=== PATIENT | female | born 1960 | race Native Hawaiian/Other Pacific Islander ===

== ENCOUNTER 2021-11-03 18:44 | Emergency (ER) | payer OTHER ==
[~2021-11-03] VITALS: Ht 162.6 cm; Wt 65.8 kg
[2021-11-03 18:50] VITALS: TEMP 97.8
[2021-11-03 19:16] LABS: PLATELET COUNT 342 K/uL (152-353)
[2021-11-03 21:36] VITALS: BP 145/88
[2021-11-04] MEDS ORDERED: HYDROXYZINE HYD25 MG PO (10:08)
[2021-11-04] MEDS ORDERED: LIPITOR40 MG PO (10:12)
[2021-11-04] MEDS ORDERED: DONEPEZIL HYDRO10 M1 PO (10:12)
[2021-11-04] MEDS ORDERED: ARIPIPRAZOLE30 MG PO (10:13)
[2021-11-04] MEDS ORDERED: EUTHYROX25 MCG PO (10:14)
[2021-11-04] MEDS ORDERED: TRUVADA PO (10:16)
[2021-11-04] MEDS ORDERED: TIVICAY50 MG PO (10:17)
[2021-11-04] MEDS ORDERED: D31000 UNI1 PO (10:18)
[2021-11-04] MEDS ORDERED: CARBAMAZEPIN200 MG PO (10:19)
[2021-11-04] MEDS ORDERED: ASCO500T18 PO (10:20)
[2021-11-04] MEDS ORDERED: ZINC220 M1 PO (10:21)
[2021-11-04] MEDS ORDERED: MELATONIN3 M1 PO (10:22)
[2021-11-04] MEDS ORDERED: TEMA15CA19 PO (10:23)
[2021-11-04] MEDS ORDERED: REMERON SOLTAB15 MG PO (10:23)
[2021-11-04] MEDS ORDERED: TRAZODONE HYDR100 MG PO (10:24)
[2021-11-04] MEDS ORDERED: RISPERDAL3 MG PO (10:27)
[2021-11-04] MEDS ORDERED: 904272561 PO (10:28)
[2021-11-04] MEDS ORDERED: GLUCAGEN DIAGNOS1 MG INJ (11:01)
[2021-11-04] MEDS ORDERED: DEXT40GE2 PO (11:03)
[2021-11-04] MEDS ORDERED: BISACODYL LAXAT10 MG PR (11:05)
[2021-11-04] MEDS ORDERED: MAGNSUS68 PO (11:06)
[2021-11-04] MEDS ORDERED: DULCOLAX5 MG PO (11:06)
[2021-11-04] MEDS ORDERED: TYLENOL325 MG PO (11:07)
[2021-11-04] MEDS ORDERED: ALUMSUS6 PO (11:08)
[2021-11-04] MEDS ORDERED: FLEET ENEMA PR (11:09)
[2021-11-04] MEDS ORDERED: CHLORTHALID25 MG PO (11:39)
== END 2021-11-03 21:39 | disposition home or self-care (01) ==
LOC: ED 18:44
PROVIDERS: Hospitalist
DX: F25.8 Other schizoaffective disorders (principal); F31.89 Other bipolar disorder; E86.0 Dehydration; Z11.52 Encounter for screening for COVID-19; Z04.6 Encounter for general psychiatric examination, requested by authority
CPT/HCPCS: 36415; 80053; 81000; 85027; 87635; 93005; 96360; 99284; U0003

== ENCOUNTER 2022-08-18 18:20 | Emergency (ER) | payer OTHER ==
[~2022-08-18] VITALS: Ht 162.6 cm; Wt 64.0 kg
[2022-08-18 18:20] VITALS: BP 116/80; TEMP 97.7
[~2022-08-18 18:20] MED LIST: 904272561 PO; ALUMSUS6 PO; ARIPIPRAZOLE30 MG PO; ASCO500T18 PO; BISACODYL LAXAT10 MG PR; CARBAMAZEPIN200 MG PO; CHLORTHALID25 MG PO; D31000 UNI1 PO; DEXT40GE2 PO; DONEPEZIL HYDRO10 M1 PO; DULCOLAX5 MG PO; EUTHYROX25 MCG PO; FLEET ENEMA PR; GLUCAGEN DIAGNOS1 MG INJ; HYDROXYZINE HYD25 MG PO; LIPITOR40 MG PO; MAGNSUS68 PO; MELATONIN3 M1 PO; REMERON SOLTAB15 MG PO; RISPERDAL3 MG PO; TEMA15CA19 PO; TIVICAY50 MG PO; TRAZODONE HYDR100 MG PO; TRUVADA PO; TYLENOL325 MG PO; ZINC220 M1 PO
[2022-08-18 19:35] LABS: PLATELET COUNT 456 K/uL (152-353)
[2022-08-18 19:39] LABS: POTASSIUM 3.9 mmol/L (3.6-5.2)
[2022-08-19] MEDS ORDERED: ABILIFY MYCITE20 MG PO (09:27)
[2022-08-19] MEDS ORDERED: LIPITOR40 MG PO (09:28)
[2022-08-19] MEDS ORDERED: EZET10TA13 PO (09:31)
[2022-08-19] MEDS ORDERED: HALO50IN4 IM (09:34)
[2022-08-19] MEDS ORDERED: POTASSIUM CHLO20 ME1 PO (09:40)
[2022-08-19] MEDS ORDERED: TEMA15CA19 PO (09:41)
[2022-08-19] MEDS ORDERED: TIVICAY50 MG PO (09:42)
[2022-08-19] MEDS ORDERED: TRAZ50TA36 PO (09:43)
[2022-08-19] MEDS ORDERED: ZYPREXA ZYDI5 MG PO (09:50)
[2022-08-19] MEDS ORDERED: PROMETHAZINE25 MG/M2 IM (09:53)
[2022-08-19] MEDS ORDERED: LORA0.5T17 PO (09:56)
[2022-08-19] MEDS ORDERED: CARBAMAZEPIN200 M1 PO (09:58)
[2022-08-19] MEDS ORDERED: HALO5INJ3 IM (10:00)
[2022-08-19] MEDS ORDERED: MULTIVITAMI1 PO (10:04)
== END 2022-08-18 20:30 | disposition still patient (30) ==
LOC: ED 18:20
PROVIDERS: Emergency Medicine Emergency Medical Services
DX: F03.911 Unspecified dementia, unspecified severity, with agitation (principal); Z11.52 Encounter for screening for COVID-19; Z04.6 Encounter for general psychiatric examination, requested by authority
CPT/HCPCS: 36415; 80053; 85027; 87635; 93005; 99283; U0003

== ENCOUNTER 2022-08-22 00:55 | Emergency (ER) | payer OTHER ==
[~2022-08-22] VITALS: Ht 162.6 cm; Wt 65.8 kg
[~2022-08-22 00:55] MED LIST changes: +ABILIFY MYCITE20 MG PO; +CARBAMAZEPIN200 M1 PO; +EZET10TA13 PO; +HALO50IN4 IM; +HALO5INJ3 IM; +LORA0.5T17 PO; +MULTIVITAMI1 PO; +POTASSIUM CHLO20 ME1 PO; +PROMETHAZINE25 MG/M2 IM; +TRAZ50TA36 PO; +ZYPREXA ZYDI5 MG PO
[2022-08-22 01:00] VITALS: TEMP 97.8
[2022-08-22 02:30] VITALS: BP 126/78
== END 2022-08-22 02:30 | disposition still patient (30) ==
LOC: ED 00:55
DX: R04.0 Epistaxis (principal); S01.511A Laceration without foreign body of lip, initial encounter; F03.90 Unspecified dementia, unspecified severity, without behavioral disturbance, psychotic disturbance, mood disturbance, and anxiety; W01.198A Fall on same level from slipping, tripping and stumbling with subsequent striking against other object, initial encounter; Y93.02 Activity, running; Y92.238 Other place in hospital as the place of occurrence of the external cause
CPT/HCPCS: 99283

== ENCOUNTER 2023-05-06 11:22 | Emergency (ER) | payer OTHER ==
[~2023-05-06] VITALS: Ht 162.6 cm; Wt 70.3 kg
[~2023-05-06 11:22] MED LIST changes: +ATOR20TA2 PO; +BLOOMIS59 PO; +CARB200T42 PO; +HYDR25TA60 PO; +LEVO0.0529 PO; +OLANZAPINE5 MG PO; +OXCARBAZEPIN150 MG PO; +POTA20TA4 PO; -ZINC220 M1 PO; +ZINC50 M1 PO
[2023-05-06 11:23] VITALS: BP 119/86; TEMP 97.9
[2023-05-06 11:58] LABS: PLATELET COUNT 403 K/uL (152-353)
[2023-05-06 12:09] LABS: POTASSIUM 3.5 mmol/L (3.6-5.2)
[2023-05-06] MEDS ORDERED: TRUVADA PO (13:40)
[2023-05-06] MEDS ORDERED: HYDR25TA60 PO (13:41)
[2023-05-06] MEDS ORDERED: LORA0.5T17 PO (13:42)
[2023-05-06] MEDS ORDERED: MAGNSUS68 PO (13:43)
[2023-05-06] MEDS ORDERED: OLANZAPINE10 MG PO (13:44)
[2023-05-06] MEDS ORDERED: TRILEPTAL300 MG PO (13:45)
[2023-05-06] MEDS ORDERED: TYLENOL325 MG PO (13:46)
[2023-05-20] MEDS ORDERED: EZET10TA13 PO (10:38)
[2023-05-20] MEDS ORDERED: Atorvastatin Calcium PO (10:38)
[2023-05-20] MEDS ORDERED: TRAZ50TA36 PO (10:39)
[2023-05-20] MEDS ORDERED: OXCARBAZEPIN300 MG PO (10:40)
[2023-05-20] MEDS ORDERED: LORA0.5T17 PO (10:40)
[2023-05-20] MEDS ORDERED: ACET-206 PO (10:40)
[2023-05-20] MEDS ORDERED: POTA20TA4 PO (10:41)
[2023-05-20] MEDS ORDERED: ZINC220C4 PO (10:41)
[2023-05-20] MEDS ORDERED: OLANZAPINE10 MG PO (10:41)
[2023-05-20] MEDS ORDERED: HYDR25TA60 PO (10:42)
[2023-05-20] MEDS ORDERED: LEVO0.0529 PO (10:42)
[2023-05-20] MEDS ORDERED: MAGNSUS68 PO (10:42)
[2023-05-20] MEDS ORDERED: CHOL100034 PO (10:46)
[2023-05-20] MEDS ORDERED: ASCO500T18 PO (10:47)
[2023-05-20] MEDS ORDERED: MULTTAB52 PO (10:47)
[2023-05-20] MEDS ORDERED: BLOOMIS59 PO (10:48)
== END 2023-05-06 12:46 | disposition other institution (70) ==
LOC: ED 11:22
PROVIDERS: Family Medicine
DX: Z04.6 Encounter for general psychiatric examination, requested by authority (principal); F03.918 Unspecified dementia, unspecified severity, with other behavioral disturbance; N39.0 Urinary tract infection, site not specified; B20 Human immunodeficiency virus [HIV] disease; F31.9 Bipolar disorder, unspecified; I10 Essential (primary) hypertension; F41.9 Anxiety disorder, unspecified; Z20.822 Contact with and (suspected) exposure to COVID-19
CPT/HCPCS: 36415; 80053; 85027; 87635; 93005; 99283; U0003